=== PATIENT | female | born 1970 | race Caucasian/White ===

== ENCOUNTER 2017-07-16 06:06 | Inpatient (IN) ==
[2017-07-16] MEDS ORDERED: Lidocaine -MPF 1% 2 ML VIAL ID ONE (06:19)
[2017-07-16] MEDS ORDERED: CeFAZolin Pre 3,000 MG/100 ML 3,000 MG/100 ML BAG IVPB ONE (06:19)
[2017-07-16] MEDS ORDERED: *HR* FentaNYL (PF) 100 MCG/2 ML VIAL ONE (06:38)
[2017-07-16] MEDS ORDERED: Lidocaine -MPF 2% 2 ML VIAL ONE (06:38)
[2017-07-16] MEDS ORDERED: Ketorolac 30 MG/ML VIAL ONE (06:38)
[2017-07-16] MEDS ORDERED: *HR* Rocuronium Bromide 50 MG/5 ML VIAL ONE ×2 (06:38→09:21)
[2017-07-16] MEDS ORDERED: *HR* Propofol 200 MG/20 ML VIAL IVP ONE (06:38)
[2017-07-16] MEDS ORDERED: Dexamethasone 4 MG/ML VIAL ONE (06:38)
[2017-07-16] MEDS ORDERED: Ondansetron 4 MG/2 ML VIAL ONE (06:38)
[2017-07-16] MEDS ORDERED: Lidocaine -MPF 4% 5 ML AMPUL ONE (06:38)
[2017-07-16] MEDS ORDERED: *HR* Succinylcholine 200 MG/10 ML VIAL IVP ONE (06:38)
[2017-07-16] MEDS ORDERED: *HR* Midazolam HCl 2 MG/2 ML VIAL ONE ×2 (06:38→07:25)
--- NOTE | 2017-07-16 07:16 | Anesthesia Evaluation PreOp ---
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 History: Denies Any Significant HX Other Medical History: Other (fibroids) Anesthesia History: No Prior Anesthetic Complications : No Test: Negative Alcohol Use: none Drug use: none Medications and Allergies Amoxicillin/Clavulanate [Augmentin] 875 mg PO BIDWM 07/16/17 [History] Fexofenadine/Pseudoephedrine [Sue-D 12 Hour Tablet] 1 tab PO Q12H 07/16/17 [ History] 3 Allergy/AdvReac Type Severity Reaction Status Date / Time niacin AdvReac skin Verified 07/16/17 06:51 flushing - Meds/Allergy Pre-op Review Medications Reviewed: Yes Allergies Reviewed: Yes Beta Blockers on Current Med List: No Anesthesia Results - Labs Laboratory Tests 07/10/17 07/10/17 08:25 08:25 Hgb 11.4 L Serum , Qual Negative Anesthesia Exam Vital Signs/O2 Sat/Glucose, Most Current Temp Pulse Resp BP Pulse Ox 07/16/17 06:29 98.7 F 108 18 135/84 100 - HEENT Pupil (Motor): Pupils equal, EOMI Mallampati: II Teeth: Normal - STONE LAYOUT MARKER STONE LAYOUT MARKER Motor: Normal RUE, Normal LUE, Normal RLE, Normal LLE, Normal Face STONE LAYOUT MARKER Sensory: Normal: RUE, LUE, RLE, LLE, Face - Cardiac Rhythm: Regular Murmur: None - Pulmonary Breath Sounds: bilateral Clear Respiratory Effort: Symmetrical Anesthesia Assess/Plan ASA Score: 2 Modified Nelly Scale for Level of Consciousness: Cooperative, oriented, and tranquil Anesthetic Plan: General Monitoring Plan: Standard Monitors Recovery Plan: PACU
[2017-07-16] MEDS ORDERED: Gabapentin 300 MG CAPSULE PO PRN (07:19)
[2017-07-16] MEDS ORDERED: Acetaminophen IV 1,000 MG/100 ML INFUS..BTL IVPB ONE (07:21)
[2017-07-16] MEDS ORDERED: Famotidine 20 MG/2 ML VIAL IVP ONE (07:22)
[2017-07-16] MEDS ORDERED: *HR* Belladonna Alkaloids/Opium 30 MG RECTAL SUPPOSITORY RC ONE (07:29)
[2017-07-16] MEDS ORDERED: Bupivacaine/EPI 1:200k 0.5%PF 10 ML VIAL ONE (07:30)
[2017-07-16] MEDS: Ringers Solution, Lactated 1,000 ML IVC SCH ×3 (07:35→16:19)
[2017-07-16] MEDS ORDERED: *HR* Morphine Sulfate/PF 10 MG/10 ML AMPUL ONE (07:35)
--- NOTE | 2017-07-16 07:37 | History & Physical Report ---
Date of Encounter: 07/16/17 Time of Encounter: 07:36 24 Hour HP Update - Instructions Instructions: If the History and Physical is less than 30 days old and was completed prior to A.M. admission and or procedure and has NOT been updated on calendar day of procedure please complete this update prior to performing procedure. - Update Patient reports changes in Medical Condition: No Changes in examination, assessment, or condition: No Changes in Medication: No Preop tests/diagnostics Reviewed: Yes Surgery Remains Indicated: Yes Consent for Planned Operative Procedure(s) Verified: Yes - Pre-Operative Checklist Preoperative Checklist Indicated: Yes Prophylactic Antibiotic Ordered: Yes Home Medications Include Beta Charito: No Beta Charito Taken Today (Day of Surgery): No Beta Charito Taken Yesterday (Day Prior to Surgery): No Is VTE Prophylaxis Indicated?: Yes - Attending Attestation teddy hardy md facog
[2017-07-16] MEDS ORDERED: Neostigmine Methylsulfate 3 MG/3 ML SYRINGE ONE (08:42)
[2017-07-16] MEDS ORDERED: *HR* Phenylephrine 10 MG/ML VIAL ONE (08:45)
[2017-07-16] MEDS ORDERED: *HR* Meperidine 25 MG/ML SYRINGE IVP PRN (09:02)
[2017-07-16] MEDS ORDERED: Ondansetron 4 MG/2 ML VIAL IVP ONE (09:02)
[2017-07-16] MEDS ORDERED: Ringers Solution, Lactated 1,000 ML IVC SCH (09:15)
[2017-07-16] MEDS ORDERED: Ibuprofen 400 MG TABLET PO PRN (09:34)
[2017-07-16] MEDS ORDERED: *HR* OxyCODONE/APAP 5/325 TABLET PO PRN (09:34)
[2017-07-16] MEDS ORDERED: Ondansetron 4 MG/2 ML VIAL IVP PRN ×2 (09:34→18:11)
[2017-07-16] MEDS ORDERED: Naloxone 0.4 MG/ML INJ IVP PRN ×2 (09:34→18:11)
--- NOTE | 2017-07-16 09:50 | OB/GYN Procedure Note ---
Hysterectomy - Diagnosis Date of procedure: 07/16/17 Hysterectomy pre-op: symptomatic leiomyomata Post-op diagnosis: same - Procedure Hysterectomy procedure: total abdominal hysterectomy, bilateral salpingo- oophorectomy Surgeon: Yoni Huber Development Mgr: Deborah Hawley Anesthesia Type: General (Spinal) Estimated blood loss (cc): 720 Complications: none Fluids: crystalloid Urine output (cc): 100 Specimens: right ovary, uterus, cervix, left ovary, right fallopian tube, left fallopian tube, myoma Findings: Uterus was enlarged to 20 weeks' size. The left tube and ovary were stuck to the sigmoid colon. Disposition: PACU Narrative: Patient was taken to the operating room. After satisfactory anesthesia was achieved, patient was placed in supine position and Buckley catheter inserted and prepped and draped in usual manner. After appropriate timeout, the abdomen was entered standard Maylard incision. The Renée retractor was placed. The bowels packed superiorly with not field. Round ligaments on either side were coagulated and cut. The infundibulopelvic ligament on the right side was coagulated and cut. The uterus was brought from within the abdominal cavity. Bladder flap created anteriorly. Uterine arteries were coagulated on both sides and cut. Cardinal ligament ligament pedicles were correct on both sides and cut. Uterosacral ligaments were clamped cut and suture ligated with 0 Monocryl. The majority of the uterus with the fibroid was removed from the cervix. The vagina was entered and the cervix was resected and sent for pathology for analysis. The cuff was closed oversewing cervical remnant with 0 Monocryl. After assurance of hemostasis, the peritoneum was reapproximated with a 2-0 Vicryl. Attention was then turned to the left tube and ovary. It was dissected away from sigmoid colon. The infundibulopelvic ligament was coagulated and cut tube and ovary were sent to pathology for analysis. After assurance of hemostasis, the abdomen was closed and her fashion using 0 Vicryl in the fascia and 3-0 Monocryl in the skin. Patient did well was taken to recovery in satisfactory condition. Counts were correct.
[2017-07-16] MEDS: *HR* Promethazine 25 MG/ML VIAL IVP PRN ×2 (10:01→10:16)
--- NOTE | 2017-07-16 10:52 | Anesthesia Evaluation Post Op ---
Date of Encounter: 07/16/17 Time of Encounter: 10:49 - Vital Signs Vital Signs: Vital Signs/O2 Sat/Glucose, Most Current Temp Pulse Resp BP Pulse Ox 07/16/17 10:45 84 16 97/59 98 07/16/17 10:35 61 17 95/67 97 07/16/17 10:25 98.9 F 61 17 97/60 99 07/16/17 10:15 63 17 95/57 97 07/16/17 10:05 64 16 97/62 97 07/16/17 09:55 97.5 F L 72 12 97/63 97 - Lungs Lungs: Clear Ascult./Percussion - Airway Airway: Non-obstructed - Cardiovascular Regular Rate - Mental Status Mental Status: Alert & Oriented, Answers Appropriately - Pain Pain Scale: 5 (tolerable) - Nausea Vomiting Nausea Vomiting: Not Present - Hydration Hydration: NPO - Discharge PostOp Status: Transfer Patient to floor Anes Supervising Prov Stmt: examined patient in PACU. VSS pain is tolerable, nausea controlled with medications. Bilateral legs able to move s/p spinal. Ready for transfer to floor
[2017-07-16] MEDS ORDERED: Sennosides 8.6 MG TABLET PO PRN (18:11)
[2017-07-16] MEDS: *HR* OxyCODONE/APAP 5/325 TABLET PO PRN (22:01)
[2017-07-17] MEDS: Loratadine/Pseudophed (12 HR) 1 EACH TABLET PO SCH ×2 (01:09→09:26)
[2017-07-17] MEDS: *HR* OxyCODONE/APAP 5/325 TABLET PO PRN ×5 (04:44→21:33)
[2017-07-17 05:12] LABS: Hematocrit 27.2 % (35.3-44.9); Immature Granulocytes % 0.4 % (0-4); Lymphocytes % 18.5 %; Mean Corpuscular Hemoglobin 25.9 pg (28.0-33.3); Mean Platelet Volume 10.5 fL (9.4-12.4); Monocytes % 8.2 %; Platelet Count 212 K/mcL (140-400); Red Blood Count 3.36 M/mcL (3.82-4.97); Red Cell Distribution Width 13.9 % (11.5-14.5); Segmented Neutrophils % 72.7 %
[2017-07-17 05:13] LABS: Basophils % 0.1 %; Eosinophils % 0.1 %; Lymphocytes # 2.6 K/mcL (0.6-4.6); Monocytes # 1.2 K/mcL (0.0-1.3); Neutrophils # 10.3 K/mcL (1.6-8.9)
[2017-07-17 05:14] LABS: Hemoglobin 8.7 g/dL (11.5-15.4)
[2017-07-17 05:32] LABS: eGFR For African Americans > 60 (> 60); eGFR For Non-African Americans > 60 (> 60)
--- NOTE | 2017-07-17 07:58 | OB/GYN Progress Note ---
Date of Encounter: 07/17/17 Time of Encounter: 07:55 - Assessment and Plan (1) Uterine myoma Current Visit: Yes Status: Resolved Qualifiers: Uterine leiomyoma location: intramural Qualified Code(s): D25.1 - Intramural leiomyoma of uterus (2) Anemia Current Visit: Yes Status: Acute Repeat CBC IN AM . Iron tx . Qualifiers: Anemia type: iron deficiency Iron deficiency anemia type: other iron deficiency Qualified Code(s): D50.8 - Other iron deficiency anemias Subjective - Subjective Patient reports: pain well controlled, appetite poor, nauseated Objective - Vital Signs Latest vital signs: Vital Signs Temp Pulse Pulse Resp BP Pulse Ox 07/17/17 04:15 98.2 F 87 14 115/61 99 07/17/17 00:05 98.5 F 88 16 103/64 98 07/16/17 20:00 98.9 F 97 16 103/64 07/16/17 16:20 16 07/16/17 16:15 98.5 F 99 16 99/67 95 07/16/17 14:15 97.5 F L 98 98 16 104/69 95 07/16/17 13:15 97.6 F 92 92 16 97/65 94 07/16/17 12:15 97.7 F 92 92 16 106/68 97 07/16/17 11:45 98.7 F 76 76 16 101/62 96 07/16/17 11:15 97.6 F 79 79 16 101/64 96 07/16/17 10:55 98.8 F 75 18 99/63 97 07/16/17 10:45 84 16 97/59 98 07/16/17 10:35 61 17 95/67 97 07/16/17 10:25 98.9 F 61 17 97/60 99 07/16/17 10:15 63 17 95/57 97 07/16/17 10:05 64 16 97/62 97 07/16/17 09:55 97.5 F L 72 12 97/63 97 Intake and Output 07/16/17 07/16/17 07/17/17 15:59 23:59 07:59 Intake Total 1100 / 1100 1134 / 1134 1400 / 1400 Output Total 1470 / 1470 1150 / 1150 1800 / 1800 Balance -370 / -370 -16 / -16 -400 / -400 Intake: IV Fluids 1100 / 1100 594 / 594 Lactated Ringers 1,000 ML @ 25 1000 / 1000 594 / 594 mls/hr IVC .Q24H JEANNA Rx#: [id number] Ancef Premix 3,000 MG/100 ML 3, 100 / 100 000 mg In 100 ml @ 200 mls/hr IVPB PREOP ONE Rx#:[id number] Oral 540 / 540 1400 / 1400 Output: Urine 400 / 400 Estimated Blood Loss 720 / 720 Urine Amount (Catheter) 50 / 50 Catheter 300 / 300 1150 / 1150 1800 / 1800 Other: Meal Dinner Weight 113.1 kg 114.7 kg Patient Weight 07/17/17 23:59 Weight 114.7 kg - I&O's I&O's: Intake & Output 07/14/17 07/15/17 07/16/17 07/17/17 23:59 23:59 23:59 23:59 Intake Total 2234 / 2234 1400 / 1400 Output Total 2620 / 2620 1800 / 1800 Balance -386 / -386 -400 / -400 Weight 113.1 kg 114.7 kg - Exam Lungs: bilateral: normal Chest: Normal S1, Normal S2 Extremities: Present: normal Abdomen: Present: normal appearance, soft Incision OB: Present: dry - Labs Labs: Abnormal lab results WBC 14.1 K/mcL (4.3-11.1) H 07/17/17 04:29 RBC 3.36 M/mcL (3.82-4.97) L 07/17/17 04:29 Hgb 8.7 g/dL (11.5-15.4) L D 07/17/17 04:29 Hct 27.2 % (35.3-44.9) L 07/17/17 04:29 MCV 81.0 fL (83.0-100.0) L 07/17/17 04:29 MCH 25.9 pg (28.0-33.3) L 07/17/17 04:29 Neutrophils # 10.3 K/mcL (1.6-8.9) H 07/17/17 04:29 Consult Discharge Plan - Plan Referrals: Polly Steinberg MD [Primary Care Provider] -
[2017-07-17] MEDS: Iron Polysaccharide Complex 150 MG CAPSULE PO SCH ×2 (09:26→21:31)
[2017-07-17] MEDS ORDERED: Loratadine/Pseudophed (12 HR) 1 EACH TABLET PO SCH (21:00)
[2017-07-18] MEDS: *HR* OxyCODONE/APAP 5/325 TABLET PO PRN ×5 (01:43→20:31)
[2017-07-18] MEDS: Loratadine/Pseudophed (12 HR) 1 EACH TABLET PO SCH (01:44)
[2017-07-18] MEDS: Ondansetron ODT 4 MG TAB.RAPDIS SL PRN ×3 (02:44→15:59)
[2017-07-18 06:50] LABS: Basophils % 0.2 %; Eosinophils # 0.1 K/mcL (0.0-0.6); Eosinophils % 1.1 %; Hematocrit 25.1 % (35.3-44.9); Hemoglobin 8.1 g/dL (11.5-15.4); Immature Granulocytes % 0.7 % (0-4); Lymphocytes # 2.5 K/mcL (0.6-4.6); Lymphocytes % 24.2 %; Mean Corpuscular HGB Conc 32.3 g/dL (31.6-35.5); Mean Corpuscular Volume 80.7 fL (83.0-100.0); Mean Platelet Volume 10.4 fL (9.4-12.4); Monocytes # 0.7 K/mcL (0.0-1.3); Monocytes % 7.1 %; Neutrophils # 6.9 K/mcL (1.6-8.9); Platelet Count 183 K/mcL (140-400); Red Blood Count 3.11 M/mcL (3.82-4.97); Red Cell Distribution Width 14.5 % (11.5-14.5); Segmented Neutrophils % 66.7 %
--- NOTE | 2017-07-18 10:48 | OB/GYN Progress Note ---
Date of Encounter: 07/18/17 Time of Encounter: 10:35 - Assessment and Plan (1) Anemia Current Visit: Yes Status: Acute Hemoglobin has dropped from 8.7 to 8.1 since yesterday. - Continue Iron polysaccharide. - Continue to monitor hemoglobin. Qualifiers: Anemia type: iron deficiency Iron deficiency anemia type: other iron deficiency Qualified Code(s): D50.8 - Other iron deficiency anemias (2) Uterine myoma Current Visit: Yes Status: Resolved Pain is well controlled. No BM or passing gas yet. - Continue current pain meds. - Continue senna. Qualifiers: Uterine leiomyoma location: intramural Qualified Code(s): D25.1 - Intramural leiomyoma of uterus Subjective - Subjective Principal diagnosis: uterine myoma, s/p TAHIRA Interval history: Patient says that she is still nauseated but denies any vomiting. She says her abdominal pain level is about a 7/10. She denies any vaginal bleeding. No bowel movement yet. Denies passing gas. She has been complaining of hot-flashes. She denies any LINDSEY, vision changes, shortness of breath, fever, or chills. Patient reports: voiding normally, pain well controlled, ambulating normally, nauseated, no appetite normal Objective - Vital Signs Latest vital signs: Vital Signs Temp Pulse Resp BP Pulse Ox 07/18/17 07:30 98.6 F 79 14 102/65 97 07/18/17 03:01 98.5 F 88 14 98/53 95 07/18/17 01:30 98.8 F 86 14 97/60 96 07/17/17 21:00 98.0 F 90 14 131/73 100 07/17/17 17:06 98.6 F 91 14 119/75 97 07/17/17 12:53 97.7 F 88 16 149/84 99 Intake and Output 07/17/17 07/18/17 07/18/17 23:59 07:59 15:59 Output Total 1450 / 1450 Balance -1450 / -1450 Output: Urine 1450 / 1450 Other: Stool Characteristics Normal for Patient Normal for Patient Weight 114.804 kg Patient Weight 07/18/17 23:59 Weight 114.804 kg - I&O's I&O's: Intake & Output 07/15/17 07/16/17 07/17/17 07/18/17 23:59 23:59 23:59 23:59 Intake Total 2234 / 2234 1640 / 1640 Output Total 2620 / 2620 1900 / 1900 1450 / 1450 Balance -386 / -386 -260 / -260 -1450 / -1450 Weight 113.1 kg 114.7 kg 114.804 kg - Exam Lungs: bilateral: normal Chest: Normal S1, Normal S2 Extremities: Present: tenderness (Minor tenders bilaterally. ), other (Pedal pulses intact and symmetrical bialterally. No pedal edema noted. ) Abdomen: Present: normal appearance, soft, tenderness (Tenderness with light palpation. ) Incision OB: Present: dry, dressed - Labs Labs: Abnormal lab results RBC 3.11 M/mcL (3.82-4.97) L 07/18/17 05:59 Hgb 8.1 g/dL (11.5-15.4) L 07/18/17 05:59 Hct 25.1 % (35.3-44.9) L 07/18/17 05:59 MCV 80.7 fL (83.0-100.0) L 07/18/17 05:59 MCH 26.0 pg (28.0-33.3) L 07/18/17 05:59 Consult Discharge Plan - Plan Referrals: Polly Steinberg MD [Primary Care Provider] - - Attending Attestation Yoni Huber MD,FACOG
[2017-07-18] MEDS: Simethicone 80 MG TAB.CHEW PO PRN ×2 (14:43→20:29)
--- NOTE | 2017-07-18 17:45 | OB/GYN Progress Note ---
Date of Encounter: 07/18/17 Time of Encounter: 17:30 - Assessment and Plan (1) Anemia Current Visit: Yes Status: Acute Hemoglobin has dropped from 8.7 to 8.1 since yesterday. - Continue Iron polysaccharide. - Continue to monitor hemoglobin. Qualifiers: Anemia type: iron deficiency Iron deficiency anemia type: other iron deficiency Qualified Code(s): D50.8 - Other iron deficiency anemias (2) Uterine myoma Current Visit: Yes Status: Resolved Pain is well controlled. - Continue current pain meds. Qualifiers: Uterine leiomyoma location: intramural Qualified Code(s): D25.1 - Intramural leiomyoma of uterus (3) Constipation Current Visit: Yes Status: Acute No bowel movement yet. Patient has also not passed any gas yet. Post operative day #2. Patient did have bowel sounds (hypoactive) present in all four quadrants. - Encouraged more ambulation. - Continue senna. - Continue colace. - Consider abdominal x-ray if patient has not passed gas by post operative day # 3 or #4. Qualifiers: Constipation type: unspecified constipation type Qualified Code(s): K59.00 - Constipation, unspecified Subjective - Subjective Principal diagnosis: S/P TAHIRA Interval history: Patient was offered Miralax but refused to take it due to fear of nausea. She did, however take the Gas-X. She still has not had a bowel movement or passed gas. Patient was also encouraged to walk around the unit more as she has only been getting out of bed to use the restroom. Objective - Vital Signs Latest vital signs: Vital Signs Temp Pulse Resp BP Pulse Ox 07/18/17 16:48 99.0 F 91 16 112/69 07/18/17 16:10 18 07/18/17 11:58 18 07/18/17 07:30 98.6 F 79 14 102/65 97 07/18/17 03:01 98.5 F 88 14 98/53 95 07/18/17 01:30 98.8 F 86 14 97/60 96 07/17/17 21:00 98.0 F 90 14 131/73 100 Intake and Output 07/18/17 07/18/17 07/18/17 07:59 15:59 23:59 Output Total 1450 / 1450 400 / 400 Balance -1450 / -1450 -400 / -400 Output: Urine 1450 / 1450 400 / 400 Other: Stool Characteristics Normal for Patient Weight 114.804 kg Patient Weight 07/18/17 23:59 Weight 114.804 kg - I&O's I&O's: Intake & Output 07/15/17 07/16/17 07/17/17 07/18/17 23:59 23:59 23:59 23:59 Intake Total 2234 / 2234 1640 / 1640 Output Total 2620 / 2620 1900 / 1900 1850 / 1850 Balance -386 / -386 -260 / -260 -1850 / -1850 Weight 113.1 kg 114.7 kg 114.804 kg - Exam Abdomen: Present: normal appearance, soft, tenderness (Minor tenderness with palpation x 4 quadrants. ), other (Hypoactive bowel sounds present x 4 quadrants. ) - Labs Labs: Abnormal lab results RBC 3.11 M/mcL (3.82-4.97) L 07/18/17 05:59 Hgb 8.1 g/dL (11.5-15.4) L 07/18/17 05:59 Hct 25.1 % (35.3-44.9) L 07/18/17 05:59 MCV 80.7 fL (83.0-100.0) L 07/18/17 05:59 MCH 26.0 pg (28.0-33.3) L 07/18/17 05:59 Consult Discharge Plan - Plan Referrals: Polly Steinberg MD [Primary Care Provider] - - Attending Attestation Yoni Huber md, facog
[2017-07-18] MEDS: Iron Polysaccharide Complex 150 MG CAPSULE PO SCH (20:39)
[2017-07-18] MEDS ORDERED: ESTRADIOL 0.05 MG TD SCH (21:45)
[2017-07-19] MEDS: *HR* OxyCODONE/APAP 5/325 TABLET PO PRN (03:55)
[2017-07-19] MEDS: Ondansetron ODT 4 MG TAB.RAPDIS SL PRN (03:55)
[2017-07-19 06:07] LABS: Basophils % 0.2 %; Eosinophils # 0.1 K/mcL (0.0-0.6); Eosinophils % 0.9 %; Hematocrit 25.9 % (35.3-44.9); Hemoglobin 8.2 g/dL (11.5-15.4); Immature Granulocytes % 0.6 % (0-4); Lymphocytes # 1.8 K/mcL (0.6-4.6); Lymphocytes % 16.5 %; Mean Corpuscular HGB Conc 31.7 g/dL (31.6-35.5); Mean Corpuscular Hemoglobin 25.9 pg (28.0-33.3); Mean Corpuscular Volume 81.7 fL (83.0-100.0); Mean Platelet Volume 10.2 fL (9.4-12.4); Monocytes # 0.7 K/mcL (0.0-1.3); Monocytes % 6.6 %; Neutrophils # 8.3 K/mcL (1.6-8.9); Platelet Count 197 K/mcL (140-400); Red Blood Count 3.17 M/mcL (3.82-4.97); Segmented Neutrophils % 75.2 %
[2017-07-19 06:18] LABS: Alanine Aminotransferase 28 Units/L (0-55); Albumin 2.7 g/dL (3.5-5.0); Albumin/Globulin Ratio 0.8 (1.1-2.2); Alkaline Phosphatase 77 Units/L (38-126); Aspartate Amino Transferase 29 Units/L (5-34); BUN/Creatinine Ratio 7 (6-26); Bilirubin,Total 0.4 mg/dL (0.2-1.2); Calcium 8.4 mg/dL (8.6-10.8); Carbon Dioxide 28 mEq/L (19-29); Chloride 104 mEq/L (98-109); Globulin 3.4 g/dL (2.4-3.5); Glucose 117 mg/dL (70-99); Osmolality,Calculated 288 (280-300); Potassium 3.6 mEq/L (3.5-4.5); Sodium 140 mEq/L (136-145); Total Protein 6.1 g/dL (6.0-8.3); eGFR For African Americans > 60 (> 60); eGFR For Non-African Americans > 60 (> 60)
[2017-07-19 06:19] LABS: Blood Urea Nitrogen 5 mg/dL (7-20)
[2017-07-19 09:24] VITALS: BP 119/73
--- NOTE | 2017-07-19 09:52 | Discharge Summary ---
Date of Encounter: 07/19/17 Time of Encounter: 09:54 - Discharge Diagnosis (1) Anemia Priority: Secondary Status: Acute Qualifiers: Anemia type: iron deficiency Iron deficiency anemia type: other iron deficiency Qualified Code(s): D50.8 - Other iron deficiency anemias (2) Uterine myoma Priority: Primary Status: Resolved Qualifiers: Uterine leiomyoma location: intramural Qualified Code(s): D25.1 - Intramural leiomyoma of uterus (3) Constipation Priority: Secondary Status: Acute Qualifiers: Constipation type: unspecified constipation type Qualified Code(s): K59.00 - Constipation, unspecified - Discharge Medications Prescriptions: OxyCODONE/APAP 5/325 [Percocet 5/325 MG] 1 each PO Q4HR PRN 14 Days #54 tablet PRN Reason: Severe Pain (7-10) Ondansetron ODT [Zofran ODT] 4 mg SL Q6HR PRN #60 tab.rapdis PRN Reason: Nausea And Vomiting Home Medications: Amoxicillin/Clavulanate [Augmentin] 875 mg PO BIDWM 07/16/17 [History] Fexofenadine/Pseudoephedrine [Sue-D 12 Hour Tablet] 1 tab PO Q12H 07/16/17 [ History] Ondansetron ODT [Zofran ODT] 4 mg SL Q6HR PRN #60 tab.rapdis 07/19/17 [Rx] OxyCODONE/APAP 5/325 [Percocet 5/325 MG] 1 each PO Q4HR PRN 14 Days #54 tablet 07/19/17 [Rx] Allergies/Adverse Reactions: 3 Allergy/AdvReac Type Severity Reaction Status Date / Time niacin AdvReac skin Verified 07/16/17 06:51 flushing Data Procedures and tests throughout hospitalization: Laboratory Tests 07/17/17 07/17/17 07/18/17 04:29 04:29 05:59 WBC 14.1 H 10.4 RBC 3.36 L 3.11 L Hgb 8.7 L D 8.1 L Hct 27.2 L 25.1 L MCV 81.0 L 80.7 L MCH 25.9 L 26.0 L MCHC 32.0 32.3 RDW 13.9 14.5 Plt Count 212 183 MPV 10.5 10.4 Immature Gran % 0.4 0.7 Seg Neutrophils % 72.7 66.7 Lymphocytes % 18.5 24.2 Monocytes % 8.2 7.1 Eosinophils % 0.1 1.1 Basophils % 0.1 0.2 Neutrophils # 10.3 H 6.9 Lymphocytes # 2.6 2.5 Monocytes # 1.2 0.7 Eosinophils # 0.0 0.1 Basophils # 0.0 0.0 Sodium Potassium Chloride Carbon Dioxide BUN Creatinine 0.69 Est GFR ( Amer) > 60 Est GFR (Non-Af Amer) > 60 BUN/Creatinine Ratio Glucose Calculated Osmolality Calcium Total Bilirubin AST ALT Alkaline Phosphatase Serum Total Protein Albumin Globulin Albumin/Globulin Ratio 07/19/17 07/19/17 05:34 05:34 WBC 11.0 RBC 3.17 L Hgb 8.2 L Hct 25.9 L MCV 81.7 L MCH 25.9 L MCHC 31.7 RDW 14.0 Plt Count 197 MPV 10.2 Immature Gran % 0.6 Seg Neutrophils % 75.2 Lymphocytes % 16.5 Monocytes % 6.6 Eosinophils % 0.9 Basophils % 0.2 Neutrophils # 8.3 Lymphocytes # 1.8 Monocytes # 0.7 Eosinophils # 0.1 Basophils # 0.0 Sodium 140 Potassium 3.6 Chloride 104 Carbon Dioxide 28 BUN 5 L Creatinine 0.67 Est GFR ( Amer) > 60 Est GFR (Non-Af Amer) > 60 BUN/Creatinine Ratio 7 Glucose 117 H Calculated Osmolality 288 Calcium 8.4 L Total Bilirubin 0.4 AST 29 ALT 28 Alkaline Phosphatase 77 Serum Total Protein 6.1 Albumin 2.7 L Globulin 3.4 Albumin/Globulin Ratio 0.8 L Labs on day of discharge: Labs from last 24 hours 07/19/17 07/19/17 05:34 05:34 WBC 11.0 RBC 3.17 L Hgb 8.2 L Hct 25.9 L MCV 81.7 L MCH 25.9 L MCHC 31.7 RDW 14.0 Plt Count 197 MPV 10.2 Immature Gran % 0.6 Seg Neutrophils % 75.2 Lymphocytes % 16.5 Monocytes % 6.6 Eosinophils % 0.9 Basophils % 0.2 Neutrophils # 8.3 Lymphocytes # 1.8 Monocytes # 0.7 Eosinophils # 0.1 Basophils # 0.0 Sodium 140 Potassium 3.6 Chloride 104 Carbon Dioxide 28 BUN 5 L Creatinine 0.67 Est GFR ( Amer) > 60 Est GFR (Non-Af Amer) > 60 BUN/Creatinine Ratio 7 Glucose 117 H Calculated Osmolality 288 Calcium 8.4 L Total Bilirubin 0.4 AST 29 ALT 28 Alkaline Phosphatase 77 Serum Total Protein 6.1 Albumin 2.7 L Globulin 3.4 Albumin/Globulin Ratio 0.8 L Primary care physician: Polly Steinberg - Patient Status Disposition: Home, Self-Care Condition: Good Functional capacity at discharge: independent ambulation Overall status at discharge: patient is progressing back to baseline - Discharge Instructions Follow Up With: Polly Steinberg MD [Primary Care Provider] - - Diet and Activity Activity: increase activity as tolerated Diet: advance to your usual diet 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 Attestation: Total time spent providing and/or coordinating discharge services: Exam - Constitutional Vitals: Temp Pulse Resp BP Pulse Ox 98.1 F 81 16 119/73 96 07/19/17 07:30 07/19/17 07:30 07/19/17 07:30 07/19/17 07:30 07/19/17 03:05 General appearance IM: A&O X 3 - Respiratory Respiratory exam: Present: CTAB - Cardiovascular Cardiovascular exam IM: Present: RRR - GI/Abdominal GI/Abdominal exam IM: diminished bowel sounds, soft Incision: normal, intact - Extremities Exam Extremities exam IM: Present: full ROM - Neurological Exam Neurological exam: CN II-XII intact - VTE Documentation of Mechanical Device: Graduated compression elastic hosiery - Attending Attestation manjit hardy md facog
[2017-07-19] MEDS: Iron Polysaccharide Complex 150 MG CAPSULE PO SCH (09:57)
[2017-07-19] MEDS: Loratadine/Pseudophed (12 HR) 1 EACH TABLET PO SCH (10:11)
== END 2017-07-19 12:44 | disposition home or self-care (01) | DRG 743 ==
LOC: SAMDAY 06:06 → 1NENUOBS 10:56
PROVIDERS: ADMIT Obstetrics & Gynecology; ATTEND Obstetrics & Gynecology